=== PATIENT | female | born 1980 | race Caucasian/White ===

== ENCOUNTER 2019-04-22 10:43 | Emergency (ER) | payer MEDICAID ==
[~2019-04-22] VITALS: Ht 165.1 cm; Wt 47.0 kg
[2019-04-22 11:01] VITALS: BP 109/66
[2019-04-22 12:01] LABS: BASOPHILS # (AUTO) 0.02 x10^3/uL (0-0.1); BASOPHILS % (AUTO) 0 % (0-1); EOSINOPHILS # (AUTO) 0.09 x10^3/uL (0-0.4); EOSINOPHILS % (AUTO) 1 % (1-7); LYMPHOCYTES # (AUTO) 1.48 x10^3/uL (1-3.4); LYMPHOCYTES % (AUTO) 18 % (22-44); MD NO; MEAN CORPUSCULAR HEMOGLOBIN 30.6 pg (27.0-34.8); MEAN CORPUSCULAR HGB CONC 31.9 g/dL (32.4-35.8); MEAN CORPUSCULAR VOLUME 95.9 fL (80-100); MEAN PLATELET VOLUME 7.9 fL (7.4-10.4); MONOCYTES # (AUTO) 0.63 x10^3/uL (0.2-0.8); MONOCYTES % (AUTO) 8 % (2-9); NEUTROPHILS # (AUTO) 5.96 x10^3/uL (1.8-6.8); NEUTROPHILS % (AUTO) 73 % (42-75); PLATELET COUNT 203 x10^3/uL (130-400); RED BLOOD COUNT 3.99 x10^6/uL (3.82-5.3); RED CELL DISTRIBUTION WIDTH 15.3 % (9.6-15.2)
[2019-04-22 12:10] LABS: ALBUMIN 3.2 g/dL (3.4-5.0); ANION GAP 3 mmol/L (5-15); CALCIUM 9.1 mg/dL (8.5-10.1); CHLORIDE 108 mmol/L (98-107); CREATININE 0.68 mg/dL (0.55-1.02)
--- NOTE | 2019-04-22 12:29 | NUR ---
Patient/Caregiver given discharge instructions and they have confirmed that they understand the instructions. Patient ambulatory with steady gait. Pt. has her prescription with her.
== END 2019-04-22 12:33 | disposition home or self-care (01) ==
LOC: ED 11:10
DX: L03.114 Cellulitis of left upper limb (principal)
CPT/HCPCS: 36415; 80048; 82040; 85025; 99284

== ENCOUNTER 2021-04-29 23:04 | Emergency (ER) | payer MEDICAID ==
[~2021-04-29] VITALS: Ht 165.1 cm; Wt 44.0 kg
[2021-04-29 23:08] VITALS: BP 119/81
[2021-04-29] MEDS ORDERED: BUPIVACAINE 0.25% ONE (23:22)
[2021-04-29] MEDS ORDERED: LIDOCAINE-MPF 1%, 5ML ONE (23:22)
[2021-04-29] MEDS ORDERED: BUPIVACAINE 0.25% INFIL ONE (23:30)
[2021-04-29] MEDS ORDERED: LIDOCAINE 1%, 2ML INFIL ONE (23:30)
--- NOTE | 2021-04-30 00:05 | NUR ---
PT LEFT ED PRIOR TO RECEIVING D/C PAPERWORK AND RX. ATTEMPT TO CALL PT REGARDING NEED FOR RX, UNBALE TO REACH PT, PHONE NUMBER NOT WORKING. ERP AWARE.
== END 2021-04-30 00:14 | disposition home or self-care (01) ==
LOC: ED 23:45
DX: K02.9 Dental caries, unspecified (principal); K04.7 Periapical abscess without sinus; F15.10 Other stimulant abuse, uncomplicated; F17.210 Nicotine dependence, cigarettes, uncomplicated; Z72.9 Problem related to lifestyle, unspecified; R51.9 Headache, unspecified
CPT/HCPCS: 41800; 99284; 99406